=== PATIENT | male | born 2005 | race Caucasian/White ===

== ENCOUNTER 2025-04-16 15:40 | Emergency (ER) | payer SELFPAY ==
[~2025-04-16] VITALS: Ht 188 cm; Wt 108.2 kg
[2025-04-16 15:54] VITALS: BP 123/64; TEMP 96.9; O2SAT 99
[2025-04-16] MEDS ORDERED: OMEP40CA4 PO (16:02)
[2025-04-17] MEDS ORDERED: PRED10TA2 PO (17:59)
[2025-04-17] MEDS ORDERED: SUCR1TA PO (17:59)
== END 2025-04-16 17:37 | disposition left against medical advice (07) ==
LOC: M ED 15:40
DX: Z53.21 Procedure and treatment not carried out due to patient leaving prior to being seen by health care provider (principal)

== ENCOUNTER 2025-04-17 14:17 | Emergency (ER) | payer OTHER, SELFPAY ==
[~2025-04-17] VITALS: Ht 185.4 cm; Wt 102.6 kg
[~2025-04-17 14:17] MED LIST: OMEP40CA4 PO
[2025-04-17] MEDS ORDERED: SUCR1TA PO (17:59)
[2025-04-17] MEDS ORDERED: PRED10TA2 PO (17:59)
[2025-04-17 18:09] VITALS: BP 120/74; TEMP 97.3; O2SAT 99
== END 2025-04-17 18:14 | disposition home or self-care (01) ==
LOC: M ED 14:17
DX: K21.9 Gastro-esophageal reflux disease without esophagitis (principal); M25.552 Pain in left hip; Z79.52 Long term (current) use of systemic steroids; Z79.899 Other long term (current) drug therapy

== ENCOUNTER 2025-09-11 04:20 | Emergency (ER) | payer OTHER ==
[~2025-09-11] VITALS: Ht 185.4 cm; Wt 104.4 kg
[~2025-09-11 04:20] MED LIST changes: +PRED10TA2 PO; +SUCR1TA PO
[2025-09-11 05:02] LABS: BASO # 0.0 10^3/uL (0.0-0.2); BASO % 0.2 % (0.0-1.0); EOS # 0.1 10^3/uL (0.0-0.5); EOS % 0.7 % (0.0-3.0); LYMPH # 3.6 10^3/uL (1.5-5.0); LYMPH % 25.2 % (24.0-44.0); MONO # 1.0 10^3/uL (0.0-0.8); MONO % 6.9 % (2.0-8.0); NEUTROPHILS # 9.4 10^3/uL (1.5-8.5); NEUTROPHILS % 66.6 % (36.0-66.0); PLATELET COUNT, AUTOMATED 401 10^3/uL (150-450)
[2025-09-11 05:28] LABS: ALT/SGPT 34 U/L (7.0-40); AST/SGOT 27 U/L (<34); CALCIUM LEVEL 10.1 MG/DL (8.5-10.1); CARBON DIOXIDE LEVEL 26 MMOL/L (20-31); CHLORIDE LEVEL 103 MMOL/L (98-107); CREATININE FOR GFR 0.90 MG/DL (0.70-1.30); GLOMERULAR FILTRATION RATE > 90.0 (>60); POTASSIUM SERUM 3.8 MMOL/L (3.5-5.1); SODIUM LEVEL 141 MMOL/L (136-145)
[2025-09-11] MEDS: ONDANSETRON 4MG/2ML VIAL IV ONE (05:57)
[2025-09-11] MEDS: NS (Normal Saline) 0.9% 1,000 ML IV ONE (05:57)
[2025-09-11] MEDS ORDERED: ISOVUE-370 76% 100 ML VIAL As Ordered ONE (07:44)
[2025-09-11 10:00] VITALS: BP 156/67
[2025-09-11] MEDS ORDERED: ONDANSETRON 4MG/2ML VIAL IV PRN (10:10)
[2025-09-11 10:11] VITALS: TEMP 98.9; O2SAT 98
[2025-09-11] MEDS ORDERED: ONDA-282 PO (10:11)
== END 2025-09-11 10:18 | disposition home or self-care (01) ==
LOC: M ED 04:20
DX: K52.9 Noninfective gastroenteritis and colitis, unspecified (principal); R10.9 Unspecified abdominal pain; K21.9 Gastro-esophageal reflux disease without esophagitis; Z79.52 Long term (current) use of systemic steroids; Z79.899 Other long term (current) drug therapy
CPT/HCPCS: 74177; 80048; 80076; 83605; 83690; 83735; 85025; 87486; 87581; 87633; 87798; 96361; 96374; 99285; J2405; Q9967